=== PATIENT | female | born 1960 | race Caucasian/White ===

== ENCOUNTER 2020-07-31 14:17 | Outpatient (CLI) | payer OTHER, SELFPAY ==
[2020-07-31 16:11] LABS: Vitamin D 25 Hydroxy 78.8 ng/mL
== END 2020-07-31 14:18 | disposition home or self-care (01) ==
PROVIDERS: PCP Obstetrics & Gynecology; Visit Provider Obstetrics & Gynecology
DX: R29.890 Loss of height (principal)
CPT/HCPCS: 36415; 82306

== ENCOUNTER 2020-09-10 12:55 | Outpatient (CLI) | payer OTHER, SELFPAY ==
--- NOTE | ~2020-09-10 | MM_ITS ---
EXAMINATION: MM screening [facility] BI w polina HISTORY: Screening mammogram TECHNIQUE: Craniocaudal and mediolateral oblique 3-D tomosynthesis images were obtained and synthetic 2-D images were generated. CAD analysis was submitted and interpreted. COMPARISON: 09/03/2019, 01/11/2018, 01/07/2017 BREAST PARENCHYMAL COMPOSITION: The breasts are heterogeneously dense, which may obscure small masses . FINDINGS: Stable asymmetry is again noted in the right breast on the mediolateral oblique view. There is no evidence of suspicious mass, calcification, or architectural distortion to suggest malignancy in either breast. There has been no suspicious interval change. IMPRESSION: 1. No mammographic evidence of malignancy. 2. Recommend routine screening mammography in one year. BI-RADS Category 2: Benign finding(s). Reviewed, dictated and finalized at location A. ER PROGRAM DIRECTOR
== END 2020-09-10 12:56 | disposition home or self-care (01) ==
PROVIDERS: PCP Obstetrics & Gynecology; Visit Provider Obstetrics & Gynecology
DX: Z12.31 Encounter for screening mammogram for malignant neoplasm of breast (principal)
CPT/HCPCS: 77063; 77067

== ENCOUNTER 2021-11-12 09:31 | Outpatient (CLI) | payer OTHER, SELFPAY ==
--- NOTE | ~2021-11-12 | MM_ITS ---
EXAMINATION: MM screening [facility] w polina HISTORY: Screening TECHNIQUE: Craniocaudal and mediolateral oblique 3-D tomosynthesis images were obtained and synthetic 2-D images were generated. CAD analysis was submitted and interpreted. COMPARISON: Comparison to multiple prior studies sequentially, with oldest reviewed study dated 08/26. BREAST PARENCHYMAL COMPOSITION: The breasts are heterogeneously dense, which may obscure small masses . FINDINGS: There is no evidence of suspicious mass, calcification, or architectural distortion to sugg est malignancy in either breast. There has been no suspicious interval change. IMPRESSION: 1. No mammographic evidence of malignancy. 2. Recommend routine screening mammography in one year. BI-RADS Category 1: Negative Reviewed, dictated and finalized at location A. EL PILE HAMMER OPERATOR
== END 2021-11-12 09:32 | disposition home or self-care (01) ==
PROVIDERS: Visit Provider Obstetrics & Gynecology
DX: Z12.31 Encounter for screening mammogram for malignant neoplasm of breast (principal)
CPT/HCPCS: 77063; 77067

== ENCOUNTER 2022-11-30 09:51 | Outpatient (CLI) | payer OTHER, SELFPAY ==
--- NOTE | ~2022-11-30 | MM_ITS ---
EXAMINATION: MM screening [facility] BI w polina HISTORY: Screening mammogram TECHNIQUE: Craniocaudal and mediolateral oblique 3-D tomosynthesis images were obtained and synthetic 2-D images were generated. CAD analysis was submitted and interpreted. COMPARISON: 11/12/2021, 09/10/2020, 09/03/2019 BREAST PARENCHYMAL COMPOSITION: The breasts are heterogeneously dense, which may obscure small masses . FINDINGS: No suspicious mass, calcification, or architectural distortion are identified in either [place] ast to suggest malignancy. There has been no suspicious interval change. IMPRESSION: 1. No mammographic evidence of malignancy. 2. Recommend routine screening mammography in one year. BI-RADS Category 1: Negative Reviewed, dictated and finalized at location A. R HAND
--- NOTE | ~2022-11-30 | DEXA_ITS ---
Bone Density Report Name: GABINO MAYA Age: 62 Sex: Female Ethnicity: White Date of : 1960 Indication: postmenopausal; screening for osteoporosis; Referring Provider: YELENA QUIÑONES Study: Bone densitometry was performed. Exam Date: November 30, 2022 Accession number: [id number] Bone Density: Region BMD T-score Z-score Classification AP Spine(L1-L4) 1.020 -0.2 1.4 Normal Femoral Neck (Left) 0.761 -0.8 0.6 Normal Total Hip (Left) 0.881 -0.5 0.6 Normal Femoral Neck (Right) 0.759 -0.8 0.6 Normal Total Hip (Right) 0.899 -0.4 0.8 Normal Total Hip Mean 0.890 -0.5 0.7 Normal World Health Organization criteria for BMD impression classify patients as: Normal (T-score at or above -1.0), Osteopenia (T-score between -1.0 and -2.5), or Osteoporosis (T-score at or below -2.5). 10-year Fracture Risk: FRAX not reported because: All T-scores for Spine Total, Hip Total, Femoral Neck at or above -1.0 Previous Exams: Region Exam Age BMD T-score BMD Change BMD Change Date g/cm2 vs Baseline vs Previous AP Spine (L1-L4) 11/30/2022 62 1.020 -0.2 -0.082 (-7.4%) -0.082 (-7.4%) 12/22/2012 52 1.102 0.5 Total Hip(Left) 11/30/2022 62 0.881 -0.5 -0.107 (-10.9% -0.108 (-10.9% 09/03/2019 59 0.989 0.4 0.001 (0.1%)# 0.060 (6.5%)* 09/09/2016 56 0.928 -0.1 -0.060 (-6.0%) -0.060 (-6.0%) 12/22/2012 52 0.988 0.4 Total Hip(Right) 11/30/2022 62 0.899 -0.4 -0.100 (-10.0% -0.043 (-4.6%) 09/03/2019 59 0.942 0.0 -0.057 (-5.7%) 0.006 (0.6%) 09/09/2016 56 0.937 0.0 -0.062 (-6.2%) -0.062 (-6.2%) 12/22/2012 52 0.999 0.5 *Denotes significance at 95% confidence level, LSC for AP Spine = 0.022 g/cm2, LSC for Total Hip = 0.027 g/cm2 # Denotes dissimilar scan types or analysis methods Clinical Information Provided by Patient: Has used the following medications: Vitamin D, Calcium Patient maximum height was 63.25 Menopause Age: 50 Drinks caffeinated beverages Onset of menses at age 13 Number of children 0 Impression: The patient has normal bone mass. The BMD for the Total Hip(Left) decreased, changing by -10.9% since the last DXA exam. The BMD for the Total Hip(Right) decreased, changing by -4.6% since the last DXA exam. Discussion: BONE DENSITY IS ABOVE THE MINIMUM DESIRABLE LEVEL AT ALL SKELETAL SITES TESTED. This patient?s bone mineral density is above the minimum desirable level (T-score -1.0 or be
== END 2022-11-30 09:52 | disposition home or self-care (01) ==
PROVIDERS: Visit Provider Obstetrics & Gynecology
DX: Z12.31 Encounter for screening mammogram for malignant neoplasm of breast (principal); Z78.0 Asymptomatic menopausal state
CPT/HCPCS: 77063; 77067; 77080

== ENCOUNTER 2024-03-01 16:17 | Outpatient (CLI) | payer OTHER, SELFPAY ==
--- NOTE | ~2024-03-01 | MM_ITS ---
EXAMINATION: MM screening [facility] BI w [place] HISTORY: Screening TECHNIQUE: Craniocaudal and mediolateral oblique 3-D tomosynthesis images were obtained and synthetic 2-D images were generated. CAD analysis was submitted and interpreted. COMPARISON: Comparison to multiple prior studies sequentially, with oldest reviewed study dated 01/07. BREAST PARENCHYMAL COMPOSITION: Not dense: There are scattered areas of fibroglandular density. FINDINGS: There is no evidence of suspicious mass, calcification, or architectural distortion to sugg est malignancy in either breast. There has been no suspicious interval change. IMPRESSION: 1. No mammographic evidence of malignancy. 2. Recommend routine screening mammography in one year. BI-RADS Category 1: Negative Reviewed, dictated and finalized at location B.
== END 2024-03-01 16:18 | disposition home or self-care (01) ==
PROVIDERS: Visit Provider Obstetrics & Gynecology
DX: Z12.31 Encounter for screening mammogram for malignant neoplasm of breast (principal)
CPT/HCPCS: 77063; 77067

== ENCOUNTER 2025-03-11 15:37 | Outpatient (CLI) | payer MEDICARE, SELFPAY ==
--- NOTE | ~2025-03-11 | MM_ITS ---
EXAMINATION: MM screening francisco BI w polina HISTORY: Screening TECHNIQUE: Craniocaudal and mediolateral oblique 3-D tomosynthesis images were obtained and synthetic 2-D images were generated. CAD analysis was submitted and interpreted. COMPARISON: Comparison to multiple prior studies sequentially, with oldest reviewed study dated 01/11. BREAST PARENCHYMAL COMPOSITION: Not dense: There are scattered areas of fibroglandular density. FINDINGS: There is no evidence of suspicious mass, calcification, or architectural distortion to sugg est malignancy in either breast. There has been no suspicious interval change. IMPRESSION: 1. No mammographic evidence of malignancy. 2. Recommend routine screening mammography in one year. BI-RADS Category 1: Negative Reviewed, dictated and finalized at location A.
--- OUTSIDE RECORDS SUMMARY | 2025-03-11 16:44 | XMS_ITS | Encounter Summary ---
Author Organization [facility] Healthcare Address [address] [place] [address] Care Team Providers Care Employee Relations Advisor Name Role Phone Latricia Ramires MD Primary Care Provider Encounter Details Date Type Department Care Team (Late st Contact Info) Description 03/08/2025 Results Follow-Up [facility] [address] [facility] [address] [place] [phone] Aaliyah Joseph, LAYLA [address] Nieves [facility] [address] [place] [address] Lipase, Amylase Social History Tobacco Use Types Packs/Day Years Used Date Smoking Tobacco: Never Smokeless Tobacco: Never Alcohol Use Standard Drinks/Week Comments Yes 0 (1 standard drink = 0.6 oz pur e alcohol) AUDIT-C Answer Date Recorded Q1: How often do you have a drink containing alc ohol? Never 01/25/2023 Average Number of Drinks Not on file 023 Frequency of Binge Drinking Not on file 10/2022 PHQ-2 Answer Date Recorded PHQ-2 Total Score (If total score is 3 or more points, staff should administer the PHQ-9) 0 07/04/2024 PHQ-9 Answer Date Recorded PHQ-9 Total Score 0 07/04/2024 Comments No Sex and Gender Information Value Date Recorded Sex Assigned at Not on file Legal Sex Female 9:08 AM COAL DIGGER Gender Identity Female 08/05/2020 12:20 AM COAL DIGGER Sexual Orientation Straight 08/30/2019 10 :52 AM COAL DIGGER documented as of this encounter Plan of Treatment Scheduled Procedures Name Priority Associated Diagnoses Date/Ti me COLONOSCOPY Diverticulitis documented as of this encounter Visit Diagnoses Not on filedocumented in this encounter Care Teams Employee Relations Advisor Relationship Specialty Start Date End Date Latricia Ramires MD [address] [facility] [address] [place] [address] PCP - General Sleep Medicine 06/22/23 documented as of this encounter
--- OUTSIDE RECORDS SUMMARY | 2025-03-11 16:44 | XMS_ITS | Encounter Summary ---
Author Organization [facility] Healthcare Address [address] [place] [address] Care Team Providers Care Telehealth Director Name Role Phone Latricia Ramires MD Primary Care Provider [phone] Encounter Details Date Type Department Care Team (Late st Contact Info) Description 03/08/2025 Orders Only [facility] [address] [place] [phone] Aaliyah Joseph, LAYLA [address] Nieves [address] [place], [place] [id number] Calculus of gallbladder without cholecystitis without obstruction Social History Tobacco Use Types Packs/Day Years [...] on file Legal Sex Female 9:08 AM COMMUNITY AMBASSADOR Gender Identity Female 08/05/2020 12:20 AM COMMUNITY AMBASSADOR Sexual Orientation Straight 08/30/2019 10 :52 AM COMMUNITY AMBASSADOR documented as of this encounter Plan of Treatment Scheduled Procedures Name Priority Associated Diagnoses Date/Ti me COLONOSCOPY Diverticulitis documented as of this encounter Procedures Procedure Name Priority Date/Time Associated Diagnosis Comments LIPASE Routine 03/08/2025 9:51 AM CDT Calculus of gallbladder without cholecystitis without obstruction AMYLASE Routine 03/08/2025 9:51 AM CDT Calculus of gallbladder without cholecystitis without obstruction documented in this encounter Results * Amylase (03/08/2025 9:51 AM CDT) Amylase 65 30 - 99 Units/L Blood 03/08/2025 9:51 AM CDT 03/08/2025 12:15 PM CDT Aaliyah Joseph LAB BLOOD ORDERABLES Final Resu lt Performing Organization Address [facility] de Phone Number [facility] [place] [address] * Lipase (03/08/2025 9:51 AM CDT) Lipase 45 10 - 99 Units/L Blood 03/08/2025 9:51 AM CDT 03/08/2025 12:15 PM CDT [facility] LAB BLOOD ORDERABLES Final Resu lt Performing Organization Address [facility] de Phone Number [facility] [place] [address] documented in this encounter Visit Diagnoses Diagnosis Calculus of gallbladder without cholecystitis without obstruction documented in this encounter Care Teams Telehealth Director Relationship Specialty Start Date End Date Latricia Ramires MD [address] [facility] [address] [place] [address] PCP - General Sleep Medicine 06/22/23 documented as of this encounter
--- OUTSIDE RECORDS SUMMARY | 2025-03-11 16:44 | XMS_ITS | Encounter Summary ---
Author Organization [facility] Healthcare Address [address] [place] [address] Care Team Providers Care Temporary Staff Accountant Name Role Phone Latricia Ramires MD Primary Care Provider Encounter Details Date Type Department Care Team (Late st Contact Info) Description 02/07/2025 Telephone [facility] [address] [place] [address] Latricia Ramires MD [address] [facility] [address] [place], [place] [id number] Social History Tobacco Use Types Packs/Day Years [...] on file Legal Sex Female 9:08 AM HEEL SEAT FITTER Gender Identity Female 08/05/2020 12:20 AM HEEL SEAT FITTER Sexual Orientation Straight 08/30/2019 10 :52 AM HEEL SEAT FITTER documented as of this encounter Miscellaneous Notes * Telephone Encounter - Ermelinda Daugherty - 02/07/2025 9:10 AM CDT error documented in this encounter Plan of Treatment Scheduled Procedures Name Priority Associated Diagnoses Date/Ti id COLONOSCOPY Diverticulitis documented as of this encounter Visit Diagnoses Not on filedocumented in this encounter Care Teams Temporary Staff Accountant Relationship Specialty Start Date End Date Latricia Ramires MD [address] [address] PCP - General Sleep Medicine 06/22/23 documented as of this encounter
--- OUTSIDE RECORDS SUMMARY | 2025-03-11 16:44 | XMS_ITS | Encounter Summary ---
Author Organization [facility] Healthcare Address [address] [place] [address] Care Team Providers Care Campus Ambassador Name Role Phone Latricia Ramires MD Primary Care Provider Encounter Details Date Type Department Care Team (Late st Contact Info) Description 02/08/2025 Results Follow-Up [facility] [address] [place] [phone] Latricia Ramires MD [address] [facility] [address] [place], [place] [id number] Urinalysis reflex to microscopic and culture Urine, Urinalysis, microscopic only Social History Tobacco Use Types Packs/Day Years [...] on file Legal Sex Female 9:08 AM PUBLICATIONS WRITER Gender Identity Female 08/05/2020 12:20 AM PUBLICATIONS WRITER Sexual Orientation Straight 08/30/2019 10 :52 AM PUBLICATIONS WRITER documented as of this encounter Plan of Treatment Scheduled Procedures Name Priority Associated Diagnoses Date/Ti me COLONOSCOPY Diverticulitis documented as of this encounter Visit Diagnoses Not on filedocumented in this encounter Care Teams Campus Ambassador Relationship Specialty Start Date End Date Latricia Ramires MD [address] [facility] [address] [place] [address] PCP - General Sleep Medicine 06/22/23 documented as of this encounter
--- OUTSIDE RECORDS SUMMARY | 2025-03-11 16:44 | XMS_ITS | Encounter Summary ---
Author Organization [facility] Healthcare Address [address] [place] [address] Care Team Providers Care Business Continuity Manager Name Role Phone Latricia Ramires MD Primary Care Provider Encounter Details Date Type Department Care Team (Late st Contact Info) Description 01/21/2025 Results Follow-Up [facility] [address] [facility] [address] [place] [phone] Aaliyah Joseph, LAYLA [address] Ezequiel [address] [place] [address] XR Knee Left 4 or More Views Social History Tobacco Use Types Packs/Day Years [...] on file Legal Sex Female 9:08 AM SLAB STRIPPER Gender Identity Female 08/05/2020 12:20 AM SLAB STRIPPER Sexual Orientation Straight 08/30/2019 10 :52 AM SLAB STRIPPER documented as of this encounter Plan of Treatment Scheduled Procedures Name Priority Associated Diagnoses Date/Ti me COLONOSCOPY Diverticulitis documented as of this encounter Visit Diagnoses Not on filedocumented in this encounter Care Teams Business Continuity Manager Relationship Specialty Start Date End Date Latricia Ramires MD [address] [facility] [address] [place] [address] PCP - General Sleep Medicine 06/22/23 documented as of this encounter
--- OUTSIDE RECORDS SUMMARY | 2025-03-11 16:45 | XMS_ITS | Clinical Summary ---
Author Organization [facility] Address [address] [place] [address] Phone Care Team Providers Care 3D Animator Name Role Phone Unavailable Primary Care Provider Unavailabl e Allergies No known active allergies Medications metoprolol succinate (TOPROL XL) 25 mg Extended Release 24 hour tablet Take 25 mg by mouth daily. 07/04/2024 Active amitriptyline (ELAVIL) 25 mg tablet Take 25 mg by mouth. Active calcium as CARBONATE-vitami n D3 500 mg-10 mcg (400 unit) tablet Take 1 Tablet by mouth daily. Active multivitamin (DAILY-MIRZA) tablet Active Encounters Date Type Department Care Team Description 03/07/2025 8:32 AM CDT - 03/07/2025 11:11 AM CDT Emergency [facility] Emergency Department [address] [place] [address] Trev Gastelum DO Chest pain, unspecified type (Primary Dx); Gallstones Discharge Disposition: Home or Self Care 03/07/2025 Travel 02/26/2025 External Device Data STL ABSTRACTION Provider, Abstract 02/14/2025 External Device Data STL ABSTRACTION Provider, Abstract 02/14/2025 External Device Data ST[place] ABSTRACTION Provider, Abstract 02/14/2025 External Device Data STL ABSTRACTION Provider, Abstract 02/13/2025 External Device Data STL ABSTRACTION Provider, Abstract 02/13/2025 External Device Data STL ABSTRACTION Provider, Abstract 02/12/2025 External Device Data STL ABSTRACTION Provider, Abstract 01/08/2025 External Device Data STL ABSTRACTION Provider, Abstract 01/08/2025 External Device Data STL ABSTRACTION Provider, Abstract 01/08/2025 External Device Data STL ABSTRACTION Provider, Abstract 12/12/2024 External Device Data STL ABSTRACTION Provider, Abstract from Last 3 Months Social History Tobacco Use Types Packs/Day Years Used Date Smoking Tobacco: Never Tobacco Cessation:Counseling Given: Not Answered Alcohol Use Standard Drinks/Week Comments Not Currently 0 (1 standard drink = 0.6 oz pur e alcohol) Feeling Safe Answer Date Recorded Are you in a relationship wi th someone who hurts you emotionally and/or physically? No 03/07/2025 Comments Unknown Sex and Gender Information Value Date Recorded Sex Assigned at Not on file Legal Sex Female 7:39 PM [employer] Gender Identity Not on file Sexual Orientation Not on file Last Filed Vital Signs Vital Sign Reading Time Taken Comments Blood Pressure 128/76 03/07/2025 10:35 AM CDT Pulse 67 03/07/2025 11:00 AM CDT Temperature 37.6 C (99.6 F) 10/12/2024 7:42 PM [employer] Respiratory Rate 22 03/07/2025 11:00 AM CDT Oxygen Saturation 99% 03/07/2025 11:00 AM CDT Inhaled Oxygen Concentration - - Weight 75.8 kg (167 lb) 03/07/2025 8:43 AM CDT Height 160 cm (5' 3) 03/07/2025 8:43 AM CDT Body Mass Index 29.58 03/07/2025 8:43 AM CDT Plan of Treatment Health Maintenance Due Date Last Done Comments Pre-Diabetes and Diabetes Screening 1960 BREAST CANCER SCREENING 1999 COLORECTAL SCREENING 2004 Colorectal Cancer Screening 2004 FIT-DNA Q 3 years 2004 FIT/FOBT Q 1 year 2004 Flex Sig/CT Colonography Q 5 years 2004 OSTEOPOROSIS SCREENING 2024 COVID-19 Vaccine (2023-2 5 season) 2024 06/27/2024, 06/11/2024, 06/30/2023, Additional history exists DTAP/TDAP/TD VACCINES (2 - T d or Tdap) 09/06/2029 09/06/2019 RSV VACCINE (60+ or ) (1 - 1-dose 75+ series) 2034 ZOSTER VACCINE Completed 04/15/2020, 10/05/2019 INFLUENZA VACCINE Completed 06/27/2024 PNEUMOCOCCAL VACCINE 50+ YEARS Completed 07/04/2024 Procedures Procedure Name Priority Date/Time Associated Diagnosis Comments TROPONIN 2 HR, 5TH GEN Timed Study 03/07/2025 10:17 AM CDT CTA CHEST W AND/OR WO CONTRAST Stat 03/07/2025 9:51 AM CDT EKG 12-LEAD Stat 03/07/2025 8:41 AM CDT TROPONIN BASELINE, 5TH GEN Stat 03/07/2025 8:39 AM CDT BRAIN NATRIURETIC PEPTIDE, BNP OR PROBNP Stat 03/07/2025 8:39 AM CDT COMPREHENSIVE METABOLIC PANEL Stat 03/07/2025 8:39 AM CDT CBC WITH DIFFERENTIAL Stat 03/07/2025 8:39 AM CDT from Last 3 Months Results * TROPONIN 2 HR, 5TH GEN (03/07/2025 10:17 AM CDT) TROPONIN T, 2 HR 5TH GEN 6 <=10 ng/L 03/07/2025 10:53 AM CDT [facility] DELTA 2HR TROPONIN T -3 See Interp. 03/07/2025 10:53 AM CDT [facility] [employer] [facility] Blood Venipuncture / Unknown 03/07/2025 10:17 AM CDT 03/07/2025 10:23 AM CDT Narrative [facility] - 03/07/2025 10:53 AM CDT Troponin Detectable but normal range. Delta not changing. Trev Gastelum DO CHEMISTRY ORDERABLES Final Resu lt [facility] [employer] [facility] CLIA# [id number] [place] [address] * CTA CHEST W AND/OR WO CONTRAST (03/07/2025 9:51 AM CDT) Anatomical Region Laterality Modality Chest Computed Tomogra phy 03/07/2025 9:48 AM CDT Impressions 03/07/2025 10:07 AM CDT IMPRESSION: 1. No evidence of pulmonary embolism. 2. Cholelithiasis. DICTATION LOCATION: Location [address] [place] [address] 03/07/2025 10:07 AM CDT EXAMINATION: CTA CHEST W AND/OR WO CONTRAST DATE: 03/07/2025 9:51 AM HISTORY: cp rule out pe TECHNIQUE: CTA of the chest was performed following the uneventful administration of contrast (IOPAMIDOL 76 % INTRAVENOUS SOLUTION (MULTI-DOSE BULK PACK) Given:70 mL) according to pulmonary embolism protocol. The examination was performed with the adjustment of mA according to the patient size and/or the use of Iterative Reconstruction Technique. Maximum intensity projection postprocessing was performed by the technologist and sent to the workstation for review. COMPARISON: No prior study is available for comparison at the time of this dictation. FINDINGS: Lower neck and axillae: No acute findings. Mediastinum and carmen: The heart size is normal. There is no pericardial effusion. There is patchy atherosclerotic calcification. Coronary artery calcifications are present. There are no filling defects in the pulmonary arteries to suggest pulmonary embolism. There is no bulky adenopathy. Pulmonary: There is no consolidation or pleural effusion. Upper abdomen: There is cholelithiasis. Musculoskeletal: No acute findings. Procedure Note Bashir Muñiz MD - 03/07/2025 EXAMINATION: CTA CHEST W AND/OR WO CONTRAST DATE: 03/07/2025 9:51 AM HISTORY: cp rule out pe TECHNIQUE: CTA of the chest was performed following the uneventful administration of contrast (IOPAMIDOL 76 % INTRAVENOUS SOLUTION (MULTI-DOSE BULK PACK) Given:70 mL) according to pulmonary embolism protocol. The examination was performed with the adjustment of mA according to the patient size and/or the use of Iterative Reconstruction Technique. Maximum intensity projection postprocessing was performed by the technologist and sent to the workstation for review. COMPARISON: No prior study is available for comparison at the time of this dictation. FINDINGS: Lower neck and axillae: No acute findings. Mediastinum and carmen: The heart size is normal. There is no pericardial effusion. There is patchy atherosclerotic calcification. Coronary artery calcifications are present. There are no filling defects in the pulmonary arteries to suggest pulmonary embolism. There is no bulky adenopathy. Pulmonary: There is no consolidation or pleural effusion. Upper abdomen: There is cholelithiasis. Musculoskeletal: No acute findings. IMPRESSION: 1. No evidence of pulmonary embolism. 2. Cholelithiasis. DICTATION LOCATION: Location 7 - [facility] Trev Gastelum DO CT ORDERABLES Final Result * EKG 12-LEAD (03/07/2025 8:41 AM CDT) 03/07/2025 8:41 AM CDT Narrative INTERFACE SYSTEM - 03/07/2025 3:30 [place] [address] Test Date: 2025-03-07 Pat Name: GABINO FLANAGAN Department: 90 Room: [address] [place] [address] Gender: Female Preschool Director: orquidea : 1960 Requested By: TREV Arriaza Order Number: [id number] Reading MD: Nacho Fay Measurements Intervals [place] Rate: 70 P: 18 MO: 140 QRS: -56 QRSD: 78 T: 50 QT: 390 QTc: 421 Interpretive Statements Normal sinus rhythm Left axis deviation Abnormal ECG Compared to ECG 10/12/2024 19:55:24 No significant changes Electronically Signed On 03-07-2025 15:30:01 CDT by Nacoh Fay Procedure Note Nacho Fay MD - 03/07/2025 [place] [address] Test Date: 2025-03-07 [facility] Department: 90 Room: [address] [place] [address] Gender: Female Preschool Director: : 1960 Requested By: TREV Arriaza Order Number: [id number] Reading MD: Nacho Fay Measurements Intervals [place] Rate: 70 P: 18 MO: 140 QRS: -56 QRSD: 78 T: 50 QT: 390 QTc: 421 Interpretive Statements Normal sinus rhythm Left axis deviation Abnormal ECG Compared to ECG 10/12/2024 19:55:24 No significant changes Electronically Signed On 03-07-2025 15:30:01 CDT by Nacho Fay Trev Gastelum DO ECG ORDERABLES Final Result INTERFACE SYSTEM Refer to clinic/hospital department * TROPONIN BASELINE, 5TH GEN (03/07/2025 8:39 AM CDT) Pathologist [facility] TROPONIN T, BASELINE 5TH GEN 9 <=10 ng/L 03/07/2025 9:15 AM CDT [facility] [employer] [facility] Blood Venipuncture / Unknown 03/07/2025 8:39 AM CDT 03/07/2025 8:43 AM CDT Narrative [facility] [employer] [facility] - 03/07/2025 9:15 AM CDT Troponin Detectable but normal range. Trev Gastelum DO CHEMISTRY ORDERABLES Final Resu lt [facility] [employer] [facility] CLIA# [id number] [place] [address] * (ABNORMAL) CBC WITH DIFFERENTIAL (03/07/2025 8:39 AM CDT) Pathologist [facility] WBC 7.3 4.0 - 9.8 K/uL 03/07/2025 8:47 AM CDT [facility] [employer] [facility] RBC 4.07 3.90 - 4.90 M/uL 03/07/2025 8:47 AM CDT [facility] [employer] [facility] HEMOGLOBIN 13.1 11.8 - 14.8 g/dL 03/07/2025 8:47 AM CDT [facility] [employer] [facility] HEMATOCRIT 39.2 35.5 - 44.0 % 03/07/2025 8:47 AM CDT [facility] [employer] [facility] MCV 96.3 82.0 - 99.0 fL 03/07/2025 8:47 AM CDT [facility] [employer] [facility] MCH 32.2 27.2 - 32.6 pg 03/07/2025 8:47 AM CDT [facility] MCHC 33.4 31.5 - 35.5 g/dL 03/07/2025 8:47 AM CDT [facility] RDW 13.2 11.5 - 14.5 % 03/07/2025 8:47 AM CDT [facility] RDW-STDEV 46.9 37.1 - 48.7 fL 03/07/2025 8:47 AM CDT [facility] PLATELETS 211 140 - 350 K/uL 03/07/2025 8:47 AM CDT [facility] MPV 8.9(L) 9.3 - 12.4 fL 03/07/2025 8:47 AM CDT [facility] NEUTROPHILS 55 % 03/07/2025 8:47 AM CDT [facility] LYMPHOCYTES 33 % 03/07/2025 8:47 AM CDT [facility] MONOCYTES 10 % 03/07/2025 8:47 AM CDT [facility] EOSINOPHILS 2 % 03/07/2025 8:47 AM CDT [facility] BASOPHILS 0 % 03/07/2025 8:47 AM CDT [facility] IMMATURE GRANULOCYTES 0 % 03/07/2025 8:47 AM CDT [facility] NEUTROPHIL ABSOLUTE 4.03 1.90 - 7.00 K/uL 03/07/2025 8:47 AM CDT [facility] LYMPHOCYTE ABSOLUTE 2.43 0.70 - 4.50 K/uL 03/07/2025 8:47 AM CDT [facility] MONOCYTE ABSOLUTE 0.72 0.10 - 1.30 K/uL 03/07/2025 8:47 AM CDT [facility] EOSINOPHIL ABSOLUTE 0.11 0.00 - 0.70 K/uL 03/07/2025 8:47 AM CDT [facility] BASOPHILS ABSOLUTE 0.01 0.00 - 0.20 K/uL 03/07/2025 8:47 AM CDT [facility] IMMATURE GRANULOCYTES ABSOLUTE 0.03 0.00 - 0.03 K/uL 03/07/2025 8:47 AM CDT [facility] Blood Venipuncture / Unknown 03/07/2025 8:39 AM CDT 03/07/2025 8:43 AM CDT Trev Gastelum DO HEMATOLOGY ORDERABLES Final Res ult Performing Organization Address City/[facility]/ZIP Co de Phone Number [facility] CLIA# [id number] [place] [address] * BRAIN NATRIURETIC PEPTIDE, BNP OR PROBNP (03/07/2025 8:39 AM CDT) Pathologist [facility] PROBNP, N TERMINAL <36 0 - 900 pg/mL 03/07/2025 9:37 AM CDT [facility] Comment: INTERPRETIVE COMMENT based on diagnosis: Diagnostic NT pro-BNP cutoffs for Heart Failure in the absence of renal failure is suggested for the following ranges <75 years: <125 pg/mL >=75 years: <450 pg/mL Exclusionary rule out cut-point for Acute Decompensated Heart Failure(ADHF) All ages: <300 pg/mL Diagnostic NT pro-BNP cutoffs for Acute Decompensated Heart Failure(ADHF) in the absence of renal failure is suggested for the following ages <50 years: > 450 pg/mL 50-75 years: > 900 pg/mL >75 years: >1800 pg/mL Blood Venipuncture / Unknown 03/07/2025 8:39 AM CDT 03/07/2025 8:43 AM CDT Trev Gastelum DO CHEMISTRY ORDERABLES Final Resu lt Performing Organization Address [facility]/ZIP Co de Phone Number [facility] CLIA# [id number] [place] [address] * (ABNORMAL) COMPREHENSIVE METABOLIC PANEL (03/07/2025 8:39 AM CDT) [facility] SODIUM 139 136 - 145 mmol/L 03/07/2025 9:15 AM [facility] POTASSIUM 4.3 3.4 - 5.1 mmol/L 03/07/2025 9:15 AM [facility] CHLORIDE 106 98 - 107 mmol/L 03/07/2025 9:15 AM [facility] CO2 23 22 - 29 mmol/L 03/07/2025 9:15 AM [facility] CALCIUM 9.0 8.6 - 10.4 mg/dL 03/07/2025 9:15 AM [facility] BUN 19 6 - 20 mg/dL 03/07/2025 9:15 AM [facility] CREATININE 0.92 0.51 - 0.95 mg/dL 03/07/2025 9:15 AM [facility] GLUCOSE 112(H) 74 - 99 mg/dL 03/07/2025 9:15 AM [facility] TOTAL PROTEIN 7.0 6.3 - 8.7 g/dL 03/07/2025 9:15 AM [facility] ALBUMIN 4.1 3.5 - 5.2 g/dL 03/07/2025 9:15 AM [facility] BILIRUBIN TOTAL <0.2 0.0 - 1.1 mg/dL 03/07/2025 9:15 AM [facility] ALKALINE PHOSPHATASE 75 40 - 150 U/L 03/07/2025 9:15 AM [facility] AST 24 0 - 33 U/L 03/07/2025 9:15 AM [facility] ALT 16 0 - 33 U/L 03/07/2025 9:15 AM [facility] GFR >60 >=60 mL/min/1.7 3 sq meter 03/07/2025 9:15 AM [facility] Comment:eGFR calculated with 2020 CKD-EPI equation. Vegetarian diet, extremely high or low muscle mass, and may affect results. Cystatin C with Glomerular Filtration Rate is a suitable alternative for these patients. ANION GAP 10 8 - 16 mmol/L 03/07/2025 9:15 AM CDT [facility] Blood Venipuncture / Unknown 03/07/2025 8:39 AM CDT 03/07/2025 8:43 AM CDT Trev Gastelum DO CHEMISTRY ORDERABLES Final Resu lt [facility] CLIA# [id number] [place] [address] from Last 3 Months Insurance MEDICARE PART A AND B [facility] [id number]
--- OUTSIDE RECORDS SUMMARY | 2025-03-11 16:45 | XMS_ITS ---
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 Further evaluation with at home sleep study. If AMERICA is diagnosed, would plan for treatment with MAD. Primary osteoarthritis of right wrist 07/04/2024 Assessment & Plan (07/04/2024 11:32 AM CDT): Chronic. Referral for physical therapy placed for management of pain and mobility. Bilateral hand pain 11/22/2023 Assessment & Plan (11/22/2023 12:16 PM RESEARCH PSYCHOLOGIST): Acute on chronic. Likely secondary to osteoarthritis and repetitive stress/overuse injury with resulting tendinitis. Trial of Voltaren recommended. Will obtain x- rays for further evaluation. Recommended use of wrist braces and avoidance of aggravating activities. Pain in both feet 06/22/2023 Assessment & Plan (06/22/2023 10:44 AM CDT): Chronic, not well controlled. Referral placed for patient to establish with a new personnel recruiter for further management. Anxiety 06/22/2023 Assessment & Plan (07/04/2024 11:32 AM CDT): Chronic, stable, controlled with counseling. Continue current management. Assessment & Plan (06/22/2023 10:43 AM CDT): Chronic, stable, controlled with counseling. Continue current management. Drug-induced constipation 08/30/2022 Overview (08/30/2022): immodium induced Assessment & Plan (08/30/2022 12:16 PM RESEARCH PSYCHOLOGIST): Constipation Plan: First try lifestyle modification which includes eating regularly, maintaining fiber in diet to the recommended amount of dietary fiber: 20 to 35 grams of fiber per day, drinking at least 8-8oz glasses or 64 oz. of water and other fluids during the day, avoiding dark sodas and coffee/tea, not holding a bowel movement and go to the bathroom when they feel the urge to have a bowel movement. They will increase the fiber slowly to minimize abdominal discomfort. They can try prunes 5-7 BID or 4oz prune juice. If this does not work they can try a bulk forming laxative, osmotic laxative or stimulant laxative/stool softeners, suppositories, enemas. Other headache syndrome 05/02/2022 Assessment & Plan (05/02/2022 10:13 PM CDT): Wakes pt from sleep. Normal neurologic exam. Given she has only had 2 episodes, will observe. If she has another episode, will refer for neuroimaging. Benign paroxysmal positional vertigo 07/03/2021 Chronic bilateral low back pain with left-sided sciatica 06/28/2021 Assessment & Plan (06/28/2021 4:19 PM CDT): No red flags. - Likely PT referral pending XR Subclinical hypothyroidism 04/06/2021 Assessment & Plan (07/04/2024 11:37 AM CDT): Chronic, not requiring levothyroxine. Labs today for follow-up. Assessment & Plan (06/22/2023 10:44 AM CDT): Not requiring levothyroxine. Labs today for follow-up. Assessment & Plan (01/25/2023 9:21 PM CDT): Clinically euthyroid, CTM Assessment & Plan (04/06/2021 10:07 PM CDT): TSH 6.59--> TSH 5.36 with fT4 1.08. Clinically euthyroid - Counseled regarding natural history and risks of overtreatment of subclinical hypothyroidism. - F/u TSH in 6 months. She will contact me sooner if she develops any concerning sx. Dizziness 04/06/2021 Assessment & Plan (04/06/2021 10:08 PM CDT): Pt to undergo vestibular testing with ENT. Valcylcovir, medrol, meclizine should sx return. Moderate mixed hyperlipidemia not requiring stat in therapy 12/29/2020 Assessment & Plan (07/04/2024 11:31 AM CDT): Chronic, stable. Labs today for follow-up. Assessment & Plan (06/22/2023 10:44 AM CDT): Chronic, stable. Labs today for follow-up. Assessment & Plan (02/06/2022 10:36 PM CDT): The 10-year ASCVD risk score (Mossyrockjessica BECERRA Jr., et al., 2013) is: 4.7% Values used to calculate the score: Age: 61 years Sex: Female Is Non- : No Diabetic: No Tobacco smoker: No Systolic Blood Pressure: 140 mmHg Is BP treated: No HDL Cholesterol: 50 mg/dL Total Cholesterol: 180 mg/dL - Counseled regarding lifestyle changes. Assessment & Plan (12/29/2020 9:45 PM CDT): The 10-year ASCVD risk score (Duc BECERRA Jr., et al., 2013) is: 3.7% Values used to calculate the score: Age: 60 years Sex: Female Is Non- : No Diabetic: No Tobacco smoker: No Systolic Blood Pressure: 138 mmHg Is BP treated: No HDL Cholesterol: 61 mg/dL Total Cholesterol: 182 mg/dL - Counseled regarding lifestyle changes. Recurrent vomiting 09/24/2020 Assessment & Plan (06/22/2023 10:44 AM CDT): Chronic. Recurrent vomiting with diarrhea is well controlled with amitriptyline. Continue current therapy. Assessment & Plan (01/25/2023 9:22 PM CDT): EGD and cscope without concerning findings. Likely functional-- much improved with amitriptyline! Cont f/u with Dr. Masterson Assessment & Plan (07/07/2022 10:19 PM CDT): Occasional, long-standing. May be CVS, but needs EGD to eval for gastritis, PUD. - She will call for f/u at [facility] - ok to stop omeprazole, as this is not helpful. Cont zofran prn Assessment & Plan (05/02/2022 10:12 PM CDT): Suspect 2/2 gatroenteritis. If recurrences continue, she will let me know Assessment & Plan (09/24/2020 5:35 PM RESEARCH PSYCHOLOGIST): C/f viral gastroenteritis, COVID-19. - Rec zofran prn for nausea - Hydration, advance diet as tolerated - Discussed red flag sx and she will present to ED if these occur Sudden right hearing loss 02/22/2020 Assessment & Plan (12/29/2020 9:44 PM CDT): Now at baseline. bMRI with no retrocochlear pathology. - Cont f/u with ENT. She understands she needs to call them [facility] if her sx return. Assessment & Plan (02/29/2020 10:27 AM CDT): Hearing nearly returned to baseline on the right. 2nd injection done, will defer 3rd. MRI pending- will call with results. Assessment & Plan (02/22/2020 2:58 PM CDT): Recommend dex injection x 3. MRI pending. Will have her return next week, will check audio first if hearing back to baseline. Osteoarthritis of carpometacarpal (CMC) joint of left thumb 11/06/2019 Assessment & Plan (01/25/2023 9:21 PM CDT): rec diclofenac gel, CMC brace Assessment & Plan (07/07/2022 10:22 PM CDT): rec diclofenac gel, CMC brace Assessment & Plan (12/29/2020 9:45 PM CDT): Most likely etiology of L thumb pain. - Counseled regarding treatments and clinical course of thumb CMC arthritis. - Rec thumb brace, diclofenac gel prn Assessment & Plan (11/06/2019 9:37 PM RESEARCH PSYCHOLOGIST): Most likely etiology of L thumb pain. - Counseled regarding treatments and clinical course of thumb CMC arthritis. - For now, rec that she use an alternative finger to scroll through her phone. Can consider diclofenac gel prn in the future as well as ice prn. If no improvement, could consider steroid injection. History of squamous cell carcinoma in situ (SCCI S) of skin 09/10/2019 Assessment & Plan (06/22/2023 10:44 AM CDT): Continue close follow-up with Dermatology as directed. Assessment & Plan (01/25/2023 9:12 PM CDT): Cont f/u with derm, photoprotection Assessment & Plan (02/06/2022 10:08 PM CDT): Cont f/u with derm, photoprotection Assessment & Plan (12/29/2020 11:02 AM CDT): F/b Dr. Hoff. Recent bx of lesion on face skin negative for malignancy. - ABCDEs, photoprotection reviewed. - Cont yearly derm appt Assessment & Plan (09/10/2019 7:51 PM RESEARCH PSYCHOLOGIST): Of L hand, resected 1995, with additional cheek NMSC. - Cont f/u with Dr. Hoff of dermatology - Counseled regarding photoprotection, ABCDEs Plantar fasciitis, bilateral 09/10/2019 Assessment & Plan (09/10/2019 7:54 PM RESEARCH PSYCHOLOGIST): TTP over plantar fasciae today. - Counseled regarding need for arch support, minimizing time barefoot or in unsupportive shoes. - Rec rolling feet on frozen water bottle as massage, stretching, toe curls. - Refer to PT. Hypertension, essential 09/10/2019 Assessment & Plan (07/04/2024 11:31 AM CDT): Chronic, stable, well controlled. Continue metoprolol. Assessment & Plan (11/22/2023 12:16 PM RESEARCH PSYCHOLOGIST): Chronic, uncontrolled. Proceed with metoprolol. Assessment & Plan (01/25/2023 9:21 PM CDT): 24h ambulatory BP monitor with approx 20% of readings in hypertensive range. No nocturnal dipping, though pt states did not sleep much that night. - Regular swimming has clearly reduced her blood pressure! Congratulated her on her hard work. - Discussed that findings above still could place at elevated CV risk, so discussed lifestyle changes to reduce CV risk in detail today. - asked her to cont home BP monitoring Assessment & Plan (07/07/2022 10:21 PM CDT): 24h ambulatory BP monitor with approx 20% of readings in hypertensive range. No nocturnal dipping, though pt states did not sleep much that night. - Regular swimming has clearly reduced her blood pressure! Congratulated her on her hard work. - Discussed that findings above still could place at elevated CV risk, so discussed lifestyle changes to reduce CV risk in detail today. - asked her to cont home BP monitoring Assessment & Plan (02/06/2022 10:36 PM CDT): 24h ambulatory BP monitor with approx 20% of readings in hypertensive range. No nocturnal dipping, though pt states did not sleep much that night. - Regular swimming has clearly reduced her blood pressure! Congratulated her on her hard work. - Discussed that findings above still could place at elevated CV risk, so discussed lifestyle changes to reduce CV risk in detail today. Assessment & Plan (04/06/2021 10:06 PM CDT): 24h ambulatory BP monitor with approx 20% of readings in hypertensive range. No nocturnal dipping, though pt states did not sleep much that night. - Regular swimming has clearly reduced her blood pressure! Congratulated her on her hard work. - Discussed that findings above still could place at elevated CV risk, so discussed lifestyle changes to reduce CV risk in detail today. Assessment & Plan (12/29/2020 9:43 PM CDT): 24h ambulatory BP monitor with approx 20% of readings in hypertensive range. No nocturnal dipping, though pt states did not sleep much that night. - Discussed that findings above still could place at elevated CV risk, so discussed lifestyle changes to reduce CV risk in detail today. Assessment & Plan (11/06/2019 9:38 PM RESEARCH PSYCHOLOGIST): Likely white coat HTN given normal BP at her gym. - CTM Bps outpatient and bring to next appointment. - Counseled regarding lifestyle changes to prevent HTN. Assessment & Plan (09/10/2019 8:07 PM RESEARCH PSYCHOLOGIST): Likely 2/2 decongestant use. No hx of HTN. - Recommended she avoid decongestants. - Recommended she check BP outside the office and let me know if >130/80. - Lower BP with low salt diet, exercise, fruits and vegetables. - F/u at next visit. Encounter for Medicare annual wellness exam 08/26 Assessment & Plan (07/04/2024 11:31 AM CDT): Patient here for annual Medicare wellness visit and for review of complete medical problem list. I reviewed Medicare Wellness Questionnaire. I reviewed and updated the complete problem list, medication list, family history, and immunization records with the patient. I provided preventive counseling and early detection interventions to the patient through health maintenance update and summary of today's office visit. Assessment & Plan (01/25/2023 11:49 AM CDT): - - Depression screen: PHQ Screening PHQ-2 Total Score (If total score is 3 or more points, staff should administer the PHQ-9): 0 PHQ-9 Total Score: 0 - A1c: check today - Lipids: check today - DEXA: WNL 11/2022 - Colon cancer: 2018, normal, f/u 2028. - Mammogram: 11/2022 birads 1 - Pap: 2018 normal, f/b Dr. Cherelle mccollum in [place]. - Hepatitis C: NR - HIV: previously screened and negative - Influenza: recommended - Td/Tdap: UTD 2019 - Shingrix UTD - Pneumovax discuss at 65 - Prevnar: discuss at 65 - COVID: UTD bivalent Routine health maintenance objectives discussed and orders placed for any outstanding screening studies as noted. Physical exam performed as above.Routine annual labs, if needed, have been ordered and will be reviewed with patient when results available. Assessment & Plan (12/31/2021 2:13 PM CDT): - - Depression screen: PHQ Screening PHQ-2 Total Score (If total score is 3 or more points, staff should administer the PHQ-9): 1 PHQ-9 Total Score: 2 - A1c: check today - Lipids: check today - DEXA: WNL 2018, f/u 2023 - Colon cancer: 2018, normal, f/u 2028 - Mammogram: 10/2021 normal per pt. - Pap: 2019 normal, f/b Dr. Cherelle mccollum in [place]. - Hepatitis C: NR - HIV: previously screened and negative - Influenza: recommended - Td/Tdap: UTD 2019 - Shingrix UTD - Pneumovax discuss at 65 - Prevnar: discuss at 65 - COVID: Rec Routine health maintenance objectives discussed and orders placed for any outstanding screening studies as noted. Physical exam performed as above.Routine annual labs, if needed, have been ordered and will be reviewed with patient when results available. Assessment & Plan (12/29/2020 11:06 AM CDT): - - Depression screen: PHQ Screening PHQ-2 Total Score (If total score is 3 or more points, staff should administer the PHQ-9): 1 PHQ-9 Total Score: 1 - A1c: check today - Lipids: check today - DEXA: WNL 2018, f/u 2023 - Colon cancer: 2019, normal, f/u 2028 - Mammogram: 08/2020 normal per pt. - Pap: 2018 normal, f/b Dr. Cherelle mccollum in [place]. - Hepatitis C: screen today - HIV: previously screened and negative - Influenza: recommended - Td/Tdap: UTD 2019 - Shingrix UTD - Pneumovax discuss at 65 - Prevnar: discuss at 64 Routine health maintenance objectives discussed and orders placed for any outstanding screening studies as noted. Physical exam performed as above.Routine annual labs, if needed, have been ordered and will be reviewed with patient when results available. Assessment & Plan (09/06/2019 1:54 PM RESEARCH PSYCHOLOGIST): - - Depression screen: PHQ Screening PHQ-2 Total Score (If total score is 3 or more points, staff should administer the PHQ-9): 0 - A1c: request labs - Lipids: request labs - DEXA: WNL 2018, f/u 2023 - Colon cancer: 2019, normal, f/u 2028 - Mammogram 08/2019 WNL - Pap: 2019 normal - Hepatitis C: unknown, request labs - HIV: previously screened and negative - Influenza: UTD 19-20 - Td/Tdap: give today - Shingrix recommended - Pneumovax discuss at 65 - Prevnar: discuss at 64 Routine health maintenance objectives discussed and orders placed for any outstanding screening studies as noted. Physical exam performed as above.Routine annual labs, if needed, have been ordered and will be reviewed with patient when results available. Sensorineural hearing loss (SNHL) of both ears 0 12/14/2016 Ear ringing 11/09/2016 Tympanic membrane conductive hearing loss 2012 Current Treatment and Therapy Plans No current plan information found. Past Treatment and Therapy Plans No past plan information found. Lifetime Dose Tracking * Chemical Lifetime Dose Automatic Entry Manual Entr y DLP 1,354 mGycm 1,354 mGycm 0 mGycm Resolved Problems Problem Noted Date Diagnosed Date Resolved Date Blood pressure elevated with out history of HTN 06/22/2023 07/04/2024 Assessment & Plan (06/22/2023 10:43 AM CDT): Blood pressure is normal in office today and review of home readings look good overall. Continue to monitor. Continue behavioral management with regular exercise and healthy diet. COVID-19 05/12/2022 07/07/2022 Assessment & Plan (05/12/2022 10:35 PM CDT): Pt is high risk for severe COVID-19 due to age, BMI. - After discussion of EUA status, side effects of Paxlovid, pt elects to pursue supportive care. - Discussed supportive care with hydration, rest, good nutrition, and APAP prn for pain and fever. Cont zofran prn for nausea - Red flag symptoms reviewed in detail and they will go to ED should these occur. - Reviewed isolation guidelines. Diverticulitis 05/05/2021 07/04/2024 Jaw pain 05/05/2021 06/22/2023 Assessment & Plan (05/05/2021 9:58 PM CDT): Suspect TMJ. Low c/f GCA. - Asked pt to f/u with dentist if her sx persist. Left lower quadrant pain 04/23/2021 Assessment & Plan (06/28/2021 4:18 PM CDT): CT A/P with diverticulitis, but no improvement with abx. Cscope 11/2018 with 1 small tubular adenoma. Seen by GI with no rec for f/u cscope. At this point, given her concurrent back pain suspect MSK/ abd wall pain. - Will get pelvic US to r/o pelvic pathology Assessment & Plan (05/05/2021 9:57 PM CDT): No improvement in sx on 10 d of abx. I am concerned she may be developing complicated diverticulitis/ intra-abdominal abscess. - Red flag sx reviewed she will go to ED if these occur. Assessment & Plan (04/23/2021 10:55 PM CDT): Suspect 2/2 diverticulitis, less likely colitis, L adnexal pathology, L pyelonephritis. - Rec APAP 1000mg tid prn, warm compresses - Will coordinate urgent CT A/P for tmo - Red flag sx discussed in detail and she will go to ED should these occur. Imbalance 08/08/2020 12/29/2020 Other chest pain 03/27/2020 12/29/2020 Assessment & Plan (03/27/2020 2:39 PM CDT): Evaluated in ED with normal EKG, troponin, and CXR. Chest pain had resolved by the time she presented. With CV risk factors of moderately elevated cholesterol, prediabetes noted on POC labs today. She does not carry a diagnosis of HTN, as her home blood pressures have been normal, but does have white coat HTN. Suspect the episode was esophageal spasm, but given risk factors this warrants a stress test. - Refer for treadmill stress test today - Red flag sx discussed White coat syndrome without hypertension 03/27/2020 12/29/2020 Assessment & Plan (03/27/2020 2:40 PM CDT): Would like to get a better sense of blood pressure-- as pressures at her gym tend to be much lower than those in the office. With recent chest pain episode, even more critical to determine if she truly has HTN. - Referred for amb BP monitor - Discussed lifestyle measures to reduce BP Cervical radiculopathy 11/06/201912/29 Assessment & Plan (11/06/2019 9:35 PM RESEARCH PSYCHOLOGIST): Most likely etiology of burning sensation. No red flags, neurologic exam normal. - XR C spine today given long duration of sx. - Reassured pt regarding typical benign clinical course. She will notify me of any new sensory or motor sx. - Take ibuprofen 400mg tid prn for pain - Will defer PT for now given she is going for knee bursitis Squamous cell carcinoma in s itu of skin of left hand 09/10/2019 09/10/2019 Pes anserinus bursitis of both knees 09/10/2019 06/22/2023 Assessment & Plan (09/10/2019 7:53 PM RESEARCH PSYCHOLOGIST): TTP over this area, no e/o knee joint pathology. - Rec ice bid-tid, either naproxen 440mg bid prn or ibuprofen 400mg tid prn. - Refer to PT today Acute nasopharyngitis 09/10/20192020 Assessment & Plan (09/10/2019 8:01 PM RESEARCH PSYCHOLOGIST): No e/o acute bacterial sinusitis, PNA. - Avoid phenylephrine and pseudoephedrine given elev BP - Flonase 2 sprays in each nostril once a day, continue mucinex and nasal rinses - Red flag sx reviewed, she will call if these occur. Primary insomnia 09/10/2019 07/04/2024 Assessment & Plan (09/10/2019 8:04 PM RESEARCH PSYCHOLOGIST): No sx of AMERICA, anxiety well controlled. - Previously taking xanax prn for insomnia. Discussed risks, and pt does not want to continue. She takes only occasionally so will d/c today. - Recommended sleep hygiene, regular exercise. Can trial melatonin 4-8mg qhs prn. Sensorineural hearing loss (SNHL) 11/09/2016 12/29/2020 Assessment & Plan (09/10/2019 7:49 PM RESEARCH PSYCHOLOGIST): L sided. MRI unremarkable. She does not feel it is severe enough from hearing aids yet. - Monitor, f/u with ENT prn
--- OUTSIDE RECORDS SUMMARY | 2025-03-11 16:45 | XMS_ITS | Referral Summary ---
Author Organization [facility] Address [address] [place] [address] Care Team Providers Care Fundraiser Name Role Phone Latricia Ramires MD Primary Care Provider [phone] Encounters Date Type Department Care Team Description 03/08/2025 Results Follow-Up [address] [place] [phone] Aaliyah Joseph NP Lipase, Amylase 03/08/2025 11:24 AM CDT - 03/08/2025 11:59 PM CDT Hospital Encounter [address] [address] Discharge Disposition: Discharge to home or self care 03/08/2025 Orders Only [facility] at the [address] [phone] Aaliyah Joseph NP Calculus of gallbladder without cholecystitis without obstruction 03/08/2025 9:30 AM CDT Office Visit [address] [phone] Aaliyah Joseph NP Chest pain, unspecified type (Primary Dx); Calculus of gallbladder without cholecystitis without obstruction 02/20/2025 3:00 PM CDT Office Visit [facility] Orthopaedic Surgery [address] [place] [address] 2nd [address] [place] [address] Isabela Caballero PA Primary osteoarthritis of left knee (Primary Dx); Acute pain of left knee 02/08/2025 Results Follow-Up [address] [place] [phone] Latricia Ramires MD Urinalysis reflex to microscopic and culture Urine, Urinalysis, microscopic only 02/07/2025 5:50 PM CDT Lab [facility] [address] [place] [phone] Dysuria 02/07/2025 Nurse Triage [address] [place] [address] [place] [phone] Latricia Ramires MD Dysuria (Primary Dx) 02/07/[address] [place] [address] [place] [phone] Latricia Ramires MD 01/21/2025 Results Follow-Up [address] [place] [phone] Aaliyah Joseph NP XR Knee Left 4 or More Views 01/21/2025 11:15 AM CDT Office Visit [facility] Dermatology [address] [facility] [address] [place] [phone] Rina Hoff MD Actinic keratoses (Primary Dx); History of nonmelanoma skin cancer; Seborrheic keratoses; Multiple benign nevi; Achrochordon 01/15/2025 11:00 AM CDT Office Visit [facility] Orthopaedic Surgery [address] [place] [address] [address]th [place] [address] [place] [address] Armando Mixon MD Right wrist pain 01/08/2025 2:08 PM CDT - 01/08/2025 11:59 PM CDT Hospital Encounter [facility] Radiology at the [address] [place] [address] Acute pain of left knee Discharge Disposition: Discharge to home or self care 01/08/2025 1:30 PM CDT Office Visit [address] [place] [phone] Aaliyah Joseph NP Acute pain of left knee (Primary Dx); Right wrist pain 12/17/2024 2:00 PM CDT Procedure visit [facility] Otolaryngology [address] [facility] 11th [place] [address] [place] [phone] Shagufta Louis Au.D. Sensorineural hearing loss (SNHL) of both ears (Primary Dx); Tinnitus of both ears from Last 3 Months Allergies No known active allergies Medications multivitamin tablet Active calcium carbonate-vitam in D3 500 mg(1,250mg) -400 unit chewable tablet Take 1 tablet by mouth daily Active amitriptyline (ELAVIL) 25 mg tablet Take 1.5 tablets (37.5 mg total) by mouth nightly Active metoprolol XL (TOPROL-XL) 25 mg extended release tabletIndicatio ns:Hypertension , essential Take 1 tablet (25 mg total) by mouth daily 90 tablet 3 4 Active famotidine (PEPCID) 20 mg tablet Take 1 tablet (20 mg total) by mouth 2 (two) times a day 60 tablet 3 5 10/16/19 26 Active diclofenac sodium (VOLTAREN) 1 % gelIndications: Osteoarthritis Apply 2 g topically 3 (three) times a day 100 g 1 5 Active Colace 100 mg capsule Take 1 capsule (100 mg total) by mouth 2 (two) times a day as needed 5 Active meloxicam (MOBIC) 15 mg tablet Take 1 tablet (15 mg total) by mouth daily 5 02/21/20 25 Discontinu ed(Therapy completed) Active Problems Problem Noted Date Diagnosed Date [...] 11/22/2023 Assessment & Plan (11/22/2023 12:16 PM EXTERN): Acute on chronic. Likely secondary to osteoarthritis and repetitive stress/overuse injury with resulting tendinitis. Trial of Voltaren recommended. Will obtain x- rays for further evaluation. Recommended use of wrist braces and avoidance of aggravating activities. Pain in both feet 06/22/2023 Assessment & Plan (06/22/2023 10:44 AM CDT): Chronic, not well controlled. Referral placed for patient to establish with a new clinical appeals rn for further management. Anxiety 06/22/2023 Assessment & Plan (07/04/2024 11:32 AM CDT): Chronic, stable, controlled with counseling. Continue current management. Assessment & Plan (06/22/2023 10:43 AM CDT): Chronic, stable, controlled with counseling. Continue current management. Drug-induced constipation 08/30/2022 Overview (08/30/2022): immodium induced Assessment & Plan (08/30/2022 12:16 PM EXTERN): Constipation Plan: First try lifestyle modification which [...] PM CDT): The 10-year ASCVD risk score (Ducjessica BECERRA Jr., et al., 2013) is: 4.7% [...] know Assessment & Plan (09/24/2020 5:35 PM EXTERN): C/f viral gastroenteritis, COVID-19. - Rec zofran [...] prn Assessment & Plan (11/06/2019 9:37 PM EXTERN): Most likely etiology of L thumb pain. [...] appt Assessment & Plan (09/10/2019 7:51 PM EXTERN): Of L hand, resected 1996, with additional cheek NMSC. - Cont f/u with Dr. Hoff of dermatology - Counseled regarding photoprotection, ABCDEs Plantar fasciitis, bilateral 09/10/2019 Assessment & Plan (09/10/2019 7:54 PM EXTERN): TTP over plantar fasciae today. - Counseled regarding need for arch support, minimizing time barefoot or in unsupportive shoes. - Rec rolling feet on frozen water bottle as massage, stretching, toe curls. - Refer to PT. Hypertension, essential 09/10/2019 Assessment & Plan (07/04/2024 11:31 AM CDT): Chronic, stable, well controlled. Continue metoprolol. Assessment & Plan (11/22/2023 12:16 PM EXTERN): Chronic, uncontrolled. Proceed with metoprolol. Assessment & [...] today. Assessment & Plan (11/06/2019 9:38 PM EXTERN): Likely white coat HTN given normal BP at her gym. - CTM Bps outpatient and bring to next appointment. - Counseled regarding lifestyle changes to prevent HTN. Assessment & Plan (09/10/2019 8:07 PM EXTERN): Likely 2/2 decongestant use. No hx of [...] - Mammogram: 11/2022 birads 1 - Pap: 2019 normal, f/b Dr. Cherelle mccollum in [place]. - Hepatitis C: NR - HIV: previously [...] cancer: 2019, normal, f/u 2028 - Mammogram: 10/2021 normal per pt. - Pap: 2019 normal, f/b Dr. Cherelle mccollum in [place]. - Hepatitis C: NR - HIV: previously [...] cancer: 2018, normal, f/u 2028 - Mammogram: 08/2020 normal per pt. - Pap: 2018 normal, f/b Dr. Cherelle mccollum in [place]. - Hepatitis C: screen today - HIV: [...] available. Assessment & Plan (09/06/2019 1:54 PM EXTERN): - - Depression screen: PHQ Screening PHQ-2 [...] 11/09/2016 Tympanic membrane conductive hearing loss 2012 Resolved Problems Problem Noted Date Diagnosed Date [...] 11/06/201912/29 Assessment & Plan (11/06/2019 9:35 PM EXTERN): Most likely etiology of burning sensation. No [...] 06/22/2023 Assessment & Plan (09/10/2019 7:53 PM EXTERN): TTP over this area, no e/o knee joint pathology. - Rec ice bid-tid, either naproxen 440mg bid prn or ibuprofen 400mg tid prn. - Refer to PT today Acute nasopharyngitis 09/10/20192020 Assessment & Plan (09/10/2019 8:01 PM EXTERN): No e/o acute bacterial sinusitis, PNA. - Avoid phenylephrine and pseudoephedrine given elev BP - Flonase 2 sprays in each nostril once a day, continue mucinex and nasal rinses - Red flag sx reviewed, she will call if these occur. Primary insomnia 09/10/2019 07/04/2024 Assessment & Plan (09/10/2019 8:04 PM EXTERN): No sx of AMERICA, anxiety well controlled. - Previously taking xanax prn for insomnia. Discussed risks, and pt does not want to continue. She takes only occasionally so will d/c today. - Recommended sleep hygiene, regular exercise. Can trial melatonin 4-8mg qhs prn. Sensorineural hearing loss (SNHL) 11/09/2016 12/29/2020 Assessment & Plan (09/10/2019 7:49 PM EXTERN): L sided. MRI unremarkable. She does not feel it is severe enough from hearing aids yet. - Monitor, f/u with ENT prn Immunizations Immunization Administration Dates Next Due Influenza, Quadrivalent, Hig h Dose, Preservative Free, Intrr 06/27/2024 Influenza, Unspecified 07/05/2022 Moderna SARS-CoV-2 Monovalent Vaccination (12+ Y RS) 12/26/2020,11/28/2020 Pfizer SARS-CoV-2 Monovalent Vaccination (12+ Yrs) PURPLE 12/29/2021 Pfizer Sars-Cov-2 Bivalent Vaccination (12+ YRS) 06/27/2024 Pneumococcal Conjugate Pcv20 07/04/2024 Tdap 09/06/2019 ZOSTER Recombinant 04/15/2020,10/05/2019 Social History Tobacco Use Types Packs/Day Years Used Date Smoking Tobacco: Never Smokeless Tobacco: Never Tobacco Cessation:Counseling Given: Not Answered Alcohol Use Standard Drinks/Week Comments Yes 0 [...] on file Legal Sex Female 9:08 AM EXTERN Gender Identity Female 08/05/2020 12:20 AM EXTERN Sexual Orientation Straight 08/30/2019 10 :52 AM EXTERN Last Filed Vital Signs Vital Sign Reading Time Taken Comments Blood Pressure 120/80 03/08/2025 9:19 AM CDT Pulse 89 03/08/2025 9:19 AM CDT Temperature 36.1 C (97 F) 03/08/2025 9:19 AM CDT Respiratory Rate 18 03/08/2025 9:19 AM CDT Oxygen Saturation 98% 03/08/2025 9:19 AM CDT Inhaled Oxygen Concentration - - Weight 77.1 kg (170 lb) 03/08/2025 9:19 AM CDT Height 154.9 cm (5' 1) 03/08/2025 9:19 AM CDT Body Mass Index 32.12 03/08/2025 9:19 AM CDT Plan of Treatment Scheduled Procedures Name Priority Associated Diagnoses Date/Ti me COLONOSCOPY Diverticulitis Procedures Procedure Name Priority Date/Time Associated Diagnosis Comments AMYLASE Routine 03/08/2025 9:51 AM CDT Calculus of gallbladder without cholecystitis without obstruction LIPASE Routine 03/08/2025 9:51 AM CDT Calculus of gallbladder without cholecystitis without obstruction URINALYSIS, MICROSCOPIC ONLY Routine 02/07/2025 3:18 PM CDT Dysuria URINALYSIS AND REFLEX TO MICROSCOPIC AND CULTURE Routine 02/07/2025 3:18 PM CDT Dysuria PA ARTHROCENTESIS ASPIR&/INJ SMALL JT/BURSA W/O US Routine 01/15/2025 11:00 AM CDT Right wrist pain XR KNEE LEFT 4 OR MORE VIEWS Schedule Routine, Read Routine (OP Routine) 01/08/2025 2:25 PM CDT Acute pain of left knee AUDBASE RESULTS 12/17/2024 1:41 PM CDT HEPATITIS C ANTIBODY Routine 12/29/2020 11:16 AM CDT Routine general medical examination at a health care facility from Last 3 Months or Most Recently Relevant to Health Maintenance Results * Lipase (03/08/2025 9:51 AM CDT) Lipase 45 10 - 99 Units/L Blood 03/08/2025 9:51 AM CDT 03/08/2025 12:15 PM CDT Aaliyah Joseph NP LAB BLOOD ORDERABLES Final Resu lt [facility] [place] [address] * Amylase (03/08/2025 9:51 AM CDT) Amylase 65 30 - 99 Units/L Blood 03/08/2025 9:51 AM CDT 03/08/2025 12:15 PM CDT Aaliyah Joseph NP LAB BLOOD ORDERABLES Final Resu lt Performing Organization Address [facility] Co de Phone Number [facility] [place] [address] * (ABNORMAL) Urinalysis reflex to microscopic and culture Urine (02/07/2025 3:18 PM CDT) Color, ur Straw Yellow Clarity, ur Clear Clear [facility] Specific gravity, ur 1.010 1.003 - 1.030 [facility] pH, urine 6.5 [facility] Comment: Interpretive Data U rine pH is affected by diet, medications, systemic acid-base disturbances, and renal tubular function. pH may affect urinary stone formation. For example, urine pH below 6.0 may help reduce the tendency for calcium phosphate stones and pH greater than 6.0 may reduce the tendency for uric acid stone formation. Source: [facility]ARMA Current Interpretive Data was last revised on 2017 Protein, ur ql Negative Negative [facility] Glucose, ur ql Negative Negative [facility] Ketones, ur Negative Negative [facility] Bilirubin, ur Negative Negative [facility] Blood, ur Negative Negative [facility] Urobilinogen, ur <2.0 <2.0 mg/dL [facility] Nitrite, ur Negative Negative [facility] Leukocyte esterase, ur Trace(A) Negative [facility] UA reflex comment Reflex to microscopic UA will be performed. [facility] Urine 02/07/2025 3:18 PM CDT 02/07/2025 4:01 PM CDT Latricia Ramires MD LAB MICROBIOLOGY - GENERAL OR DERABLES Final Result Performing Organization Address [facility] Co de Phone Number [facility] [place] [address] * (ABNORMAL) Urinalysis, microscopic only (02/07/2025 3:18 PM CDT) WBC, ur 6-10(A) 0 - 5 /HPF RBC, ur 0-2 0 - 2 /HPF [facility] Epithelial cells, squamous, ur 1-5 0 - 5 /HPF [facility] Culture Reflex Comment Reflex conditions for urine culture (WBC >10) not met. [facility] Urine 02/07/2025 3:18 PM CDT 02/07/2025 4:01 PM CDT Latricia Ramires MD LAB URINE ORDERABLES Final Re sult Performing Organization Address [facility] Co de Phone Number [facility] [place] [address] * PA ARTHROCENTESIS ASPIR&/INJ SMALL JT/BURSA W/O US (01/15/2025 11:00 AM CDT) Narrative Armando Mixon MD - 01/15/2025 11:00 AM CDT Armadno Mixon MD 01/15/2025 1:03 PM Small Joint Injection: R thumb [facility] Performed by: Armando Mixon MD Authorized by: Armando Mixon MD Small Joint Injection/Aspiration: Consent Given by: Patient Timeout: prior to procedure the correct patient, procedure, and site was verified Verbal consent obtained?: Yes Supporting Documentation: Indications: Pain Procedure Details: Location: Thumb Site: R thumb CMC Approach: Dorsal Medications: 1 mL lidocaine 10 mg/mL (1 %); 40 mg methylPREDNISolone acetate 40 mg/mL Patient tolerance: Patient tolerated the procedure well with no immediate complications us Armando Mixon MD IN CLINIC/BEDSIDE ORDERABLES Final Result * XR Knee Left 4 or More Views (01/08/2025 2:25 PM CDT) Anatomical Region Laterality Modality Lower Extremities, Knee Left Computed Radiography 01/08/2025 3:07 PM CDT Impressions 01/08/2025 3:07 PM CDT Trace left knee effusion. Otherwise normal left knee radiographs. Electronically signed by: Bashir Wise D.O. Narrative 01/08/2025 3:07 PM CDT EXAMINATION: XR KNEE LEFT 4 OR MORE VIEWS HISTORY: left knee pain since July after squatting COMPARISON: None FINDINGS: Normal joint spaces and alignment. No significant degenerative changes. Trace knee effusion. No displaced fracture. Procedure Note Bashir Wise, - 01/08/2025 EXAMINATION: XR KNEE LEFT 4 OR MORE VIEWS HISTORY: left knee pain since July after squatting COMPARISON: None FINDINGS: Normal joint spaces and alignment. No significant degenerative changes. Trace knee effusion. No displaced fracture. IMPRESSION: Trace left knee effusion. Otherwise normal left knee radiographs. Electronically signed by: Bashir Wise D.O. Aaliyah Joseph NP IMG XR PROCEDURES Final Result * [facility] Results (12/17/2024 1:41 PM CDT) Provider Scanning AUDIOLOGY SERVICES ORDERABLES Final Result * Hepatitis C antibody (12/29/2020 11:16 AM CDT) [facility] Hep C Ab <0.1 0.0 - 0.9 s/co ratio [facility] - 01 Comment: Negative: < 0.8 Indeterminate: 0.8 - 0.9 Positive: > 0.9 The CDC recommends that a positive HCV antibody result be followed up with a HCV Nucleic Acid Amplification test (535803). Blood specimen (specimen) 12/29/2020 11:16 AM CDT 12/29/2020 Narrative [facility] - 12/31/2020 7:09 AM CDT Performed at: [address] [place] [address], [place] [id number] Lumber Sales Supervisor: Sherwin Trevino PhD, Phone: [phone] Michelle Diaz MD LAB MICROBIOLOGY - GEN ERAL ORDERABLES Final Result Performing Organization Address City/State/[facility] Co de Phone Number [facility] - 01 from Last 3 Months or Most Recently Relevant to Health Maintenance [facility] [id number] [facility] [id number] [facility] MEDICARE AARP Care Teams Fundraiser Relationship Specialty Start Date End Date Latricia Ramires MD [address] [facility] [address] [address] PCP - General Sleep Medicine 06/22/23
--- OUTSIDE RECORDS SUMMARY | 2025-03-11 16:45 | XMS_ITS | Clinical Summary ---
Author Organization [facility] Address [address] [place] [address] Care Team Providers Care Batch Dumper Name Role Phone Latricia Ramires MD Primary Care Provider [phone] Allergies No known active allergies Medications multivitamin [...] 11/22/2023 Assessment & Plan (11/22/2023 12:16 PM INSURANCE RISK MANAGER): Acute on chronic. Likely secondary to osteoarthritis and repetitive stress/overuse injury with resulting tendinitis. Trial of Voltaren recommended. Will obtain x- rays for further evaluation. Recommended use of wrist braces and avoidance of aggravating activities. Pain in both feet 06/22/2023 Assessment & Plan (06/22/2023 10:44 AM CDT): Chronic, not well controlled. Referral placed for patient to establish with a new birdcage assembler for further management. Anxiety 06/22/2023 Assessment & Plan (07/04/2024 11:32 AM CDT): Chronic, stable, controlled with counseling. Continue current management. Assessment & Plan (06/22/2023 10:43 AM CDT): Chronic, stable, controlled with counseling. Continue current management. Drug-induced constipation 08/30/2022 Overview (08/30/2022): immodium induced Assessment & Plan (08/30/2022 12:16 PM INSURANCE RISK MANAGER): Constipation Plan: First try lifestyle modification which [...] CDT): The 10-year ASCVD risk score (Duc HERNAN Pelaez., et al., 2013) is: 4.7% Values used to calculate the score: Age: 61 years Sex: Female Is Non- : No Diabetic: No Tobacco smoker: No Systolic Blood Pressure: 140 mmHg Is BP treated: No HDL Cholesterol: 50 mg/dL Total Cholesterol: 180 mg/dL - Counseled regarding lifestyle changes. Assessment & Plan (12/29/2020 9:45 PM CDT): The 10-year ASCVD risk score (Duc HERNAN Pelaez., et al., 2013) is: 3.7% Values used [...] know Assessment & Plan (09/24/2020 5:35 PM INSURANCE RISK MANAGER): C/f viral gastroenteritis, COVID-19. - Rec zofran [...] prn Assessment & Plan (11/06/2019 9:37 PM INSURANCE RISK MANAGER): Most likely etiology of L thumb pain. [...] appt Assessment & Plan (09/10/2019 7:51 PM INSURANCE RISK MANAGER): Of L hand, resected 1995, with additional cheek NMSC. - Cont f/u with Dr. Hoff of dermatology - Counseled regarding photoprotection, ABCDEs Plantar fasciitis, bilateral 09/10/2019 Assessment & Plan (09/10/2019 7:54 PM INSURANCE RISK MANAGER): TTP over plantar fasciae today. - Counseled regarding need for arch support, minimizing time barefoot or in unsupportive shoes. - Rec rolling feet on frozen water bottle as massage, stretching, toe curls. - Refer to PT. Hypertension, essential 09/10/2019 Assessment & Plan (07/04/2024 11:31 AM CDT): Chronic, stable, well controlled. Continue metoprolol. Assessment & Plan (11/22/2023 12:16 PM INSURANCE RISK MANAGER): Chronic, uncontrolled. Proceed with metoprolol. Assessment & [...] today. Assessment & Plan (11/06/2019 9:38 PM INSURANCE RISK MANAGER): Likely white coat HTN given normal BP at her gym. - CTM Bps outpatient and bring to next appointment. - Counseled regarding lifestyle changes to prevent HTN. Assessment & Plan (09/10/2019 8:07 PM INSURANCE RISK MANAGER): Likely 2/2 decongestant use. No hx of [...] 2019 normal, f/b Dr. Cherelle mccollum in [place]. - Hepatitis C: NR - HIV: previously [...] Mammogram: 10/2021 normal per pt. - Pap: 2018 normal, f/b Dr. Cherelle mccollum in [place]. - Hepatitis C: NR - HIV: previously [...] 2018 normal, f/b Dr. Cherelle mccollum in [place]. - Hepatitis C: screen today - HIV: [...] available. Assessment & Plan (09/06/2019 1:54 PM INSURANCE RISK MANAGER): - - Depression screen: PHQ Screening PHQ-2 [...] previously screened and negative - Influenza: UTD - Td/Tdap: give today - Shingrix recommended [...] 11/06/201912/29 Assessment & Plan (11/06/2019 9:35 PM INSURANCE RISK MANAGER): Most likely etiology of burning sensation. No [...] 06/22/2023 Assessment & Plan (09/10/2019 7:53 PM INSURANCE RISK MANAGER): TTP over this area, no e/o knee joint pathology. - Rec ice bid-tid, either naproxen 440mg bid prn or ibuprofen 400mg tid prn. - Refer to PT today Acute nasopharyngitis 09/10/20192020 Assessment & Plan (09/10/2019 8:01 PM INSURANCE RISK MANAGER): No e/o acute bacterial sinusitis, PNA. - Avoid phenylephrine and pseudoephedrine given elev BP - Flonase 2 sprays in each nostril once a day, continue mucinex and nasal rinses - Red flag sx reviewed, she will call if these occur. Primary insomnia 09/10/2019 07/04/2024 Assessment & Plan (09/10/2019 8:04 PM INSURANCE RISK MANAGER): No sx of [place], anxiety well controlled. - Previously taking xanax prn for insomnia. Discussed risks, and pt does not want to continue. She takes only occasionally so will d/c today. - Recommended sleep hygiene, regular exercise. Can trial melatonin 4-8mg qhs prn. Sensorineural hearing loss (SNHL) 11/09/2016 12/29/2020 Assessment & Plan (09/10/2019 7:49 PM INSURANCE RISK MANAGER): L sided. MRI unremarkable. She does not feel it is severe enough from hearing aids yet. - Monitor, f/u with ENT prn Encounters Date Type Department Care Team Description 03/08/2025 11:24 AM CDT - 03/08/2025 11:59 PM CDT Hospital Encounter [address] [address] Discharge Disposition: Discharge to home or self care 03/08/2025 9:30 AM CDT Office Visit [address] [place] [phone] Aaliyah Joseph NP Chest pain, unspecified type (Primary Dx); Calculus of gallbladder without cholecystitis without obstruction 03/08/2025 Results Follow-Up [address] [phone] Aaliyah Joseph NP Lipase, Amylase 03/08/2025 Orders Only [facility] the [address] [phone] Aaliyah Joseph, LAYLA Calculus of gallbladder without cholecystitis without obstruction 02/20/2025 3:00 PM CDT Office Visit [facility] [address] [facility] 2nd Floor [address] [place] [phone] Isabela Caballero PA Primary osteoarthritis of left knee (Primary Dx); Acute pain of left knee 02/08/2025 Results Follow-Up [facility] [address] [place] [address] [address] [place] [phone] Latricia Ramires MD Urinalysis reflex to microscopic and culture Urine, Urinalysis, microscopic only 02/07/2025 5:50 PM CDT Lab [facility] ([facility]) [address] [place] [phone] Dysuria 02/07/2025 Nurse Triage [address] [place] [phone] Latricia Ramires MD Dysuria (Primary Dx) 02/07/[address] [place] [phone] Latricia Ramires MD 01/21/2025 11:15 AM CDT Office Visit [facility] [address] [place] [address] [place] [phone] Rina Hoff MD Actinic keratoses (Primary Dx); History of nonmelanoma skin cancer; Seborrheic keratoses; Multiple benign nevi; Achrochordon 01/21/2025 Results Follow-Up [address] [place] [phone] Aaliyah Joseph NP XR Knee Left 4 or More Views 01/15/2025 11:00 AM CDT Office Visit [facility] [address] [place] [address] 6th [place] [address] [place] [address] Armando Mixon MD Right wrist pain 01/08/2025 2:08 PM CDT - 01/08/2025 11:59 PM CDT Hospital Encounter [facility] at the [address] [address] Acute pain of left knee Discharge Disposition: Discharge to home or self care 01/08/2025 1:30 PM CDT Office Visit [address] [place] [phone] Aaliyah Joseph NP Acute pain of left knee (Primary Dx); Right wrist pain 12/17/2024 2:00 PM CDT Procedure visit [facility] [address] [facility] Medicine 11th [place] [address] [place] [address] Shagufta Louis Au.D. Sensorineural hearing loss (SNHL) of both ears (Primary Dx); Tinnitus of both ears from Last 3 Months Immunizations Immunization Administration Dates Next Due Influenza, Quadrivalent, Hig h Dose, Preservative Free, Intrr 06/27/2024 Influenza, Unspecified 07/05/2022 Moderna SARS-CoV-2 Monovalent Vaccination (12+ Y RS) 12/26/2020,11/28/2020 Pfizer SARS-CoV-2 Monovalent Vaccination (12+ Yrs) PURPLE 12/29/2021 Pfizer Sars-Cov-2 Bivalent Vaccination (12+ YRS) 06/27/2024 Pneumococcal Conjugate Pcv20 07/04/2024 Tdap 09/06/2019 ZOSTER Recombinant 04/15/2020,10/05/2019 Medical History Medical History Date Comments Anxiety disorder takes xanax qwe ek for insomnia GERD (gastroesophageal reflux disease) 2018 Hyperthyroidism Now resolved. Squamous cell carcinoma in s itu of skin of left hand HL (hearing loss) Tinnitus Covid-19 05/12/2022 Pes anserinus bursitis of both knees 09/10/2019 Jaw pain 05/05/2021 Left lower quadrant pain 04/23/2021 Primary insomnia 09/10/2019 Diverticulitis 05/05/2021 Family History Medical History Relation Name Comments Suicidality Father Relation Name Status Comments Father Social History Tobacco Use Types Packs/Day Years [...] on file Legal Sex Female 9:08 AM INSURANCE RISK MANAGER Gender Identity Female 08/05/2020 12:20 AM INSURANCE RISK MANAGER Sexual Orientation Straight 08/30/2019 10 :52 AM INSURANCE RISK MANAGER Obstetrics History Last Filed Vital Signs Vital Sign Reading [...] Priority Associated Diagnoses Date/Ti me COLONOSCOPY Diverticulitis Health Maintenance Due Date Last Done Comments Covid-19 Vaccine ( season) 2024 06/27/2024, 06/30/2023, 08/09/2022, Additional history exists Breast Cancer Screening-Mammogram 09/26/2024 09/26/2023, 11/30/2022 Cervical Cancer Screening 10/21/2024 10/21/2023 Depression Screening 07/04/2025 07/04/2024, 07/04/2024, 01/25/2023, Additional history exists Fall Risk Assessment 07/04/2025 07/04/2024 Osteoporosis Screening-Bone Density Scan 07/04/2025 Postponed from 1959 (Patient declined, but will receive in the future) Well Visit 65+ 07/04/2025 07/04/2024, 05/10/2022, 12/31/2021, Additional history exists DTaP/Tdap/Td Vaccine (2 - Td or Tdap) 09/06/2029 09/06/2019 Colon Cancer Screening-Colonoscopy 09/27/2032 09/27/2022 Zoster Vaccine Completed 04/15/2020, 10/05/2019 Hepatitis C Screening Completed 12/29/2020 Influenza Vaccine Completed 06/27/2024, , 07/05/2022 Pneumococcal vaccine 65+ Completed 07/04/2024 Hepatitis B Screening Discontinued Procedures Procedure Name Priority Date/Time Associated Diagnosis Comments AMYLASE Routine 03/08/2025 9:51 AM CDT Calculus of gallbladder without cholecystitis without obstruction LIPASE Routine 03/08/2025 9:51 AM CDT Calculus of gallbladder without cholecystitis without obstruction URINALYSIS, MICROSCOPIC ONLY Routine 02/07/2025 3:18 PM CDT Dysuria URINALYSIS AND REFLEX TO MICROSCOPIC AND CULTURE Routine 02/07/2025 3:18 PM CDT Dysuria VA ARTHROCENTESIS ASPIR&/INJ SMALL JT/BURSA W/O US Routine [...] LAB BLOOD ORDERABLES Final Resu lt [facility] Department [place] [address] * Amylase (03/08/2025 9:51 AM CDT) Amylase 65 30 - 99 Units/L Blood 03/08/2025 9:51 AM CDT 03/08/2025 12:15 PM CDT Aaliyah Joseph NP LAB BLOOD ORDERABLES Final Resu lt Performing Organization Address [facility]/ZIP Co de Phone Number [facility] [place] [address] * (ABNORMAL) Urinalysis reflex to microscopic and culture Urine (02/07/2025 3:18 PM CDT) Pathologist [facility] Color, ur Straw Yellow Clarity, ur Clear Clear [facility] Specific gravity, ur 1.010 1.003 - 1.030 [facility] pH, urine 6.5 [facility] Comment: Interpretive Data U rine pH is affected by diet, medications, systemic acid-base disturbances, and renal tubular function. pH may affect urinary stone formation. For example, urine pH below 6.0 may help reduce the tendency for calcium phosphate stones and pH greater than 6.0 may reduce the tendency for uric acid stone formation. Source: [facility] Current Interpretive Data was last revised on 2017 Protein, ur ql Negative Negative [facility] Glucose, ur ql Negative Negative [facility] Ketones, ur Negative Negative [facility] Bilirubin, ur Negative Negative [facility] Blood, ur Negative Negative [facility] Urobilinogen, ur <2.0 <2.0 mg/dL [facility] Nitrite, ur Negative Negative [facility] Leukocyte esterase, ur Trace(A) Negative [facility] UA reflex comment Reflex to microscopic UA will be performed. [facility] Urine 02/07/2025 3:18 PM CDT 02/07/2025 4:01 PM CDT Latricia Ramires MD LAB MICROBIOLOGY - GENERAL OR DERABLES Final Result Performing Organization Address City/[facility]/ZIP Co de Phone Number [facility] [place] [address] * (ABNORMAL) Urinalysis, microscopic only (02/07/2025 3:18 PM CDT) WBC, ur 6-10(A) 0 - 5 /HPF RBC, ur 0-2 0 - 2 /HPF [facility] Epithelial cells, squamous, ur 1-5 0 - 5 /HPF [facility] Culture Reflex Comment Reflex conditions for urine culture (WBC >10) not met. [facility] Urine 02/07/2025 3:18 PM CDT 02/07/2025 4:01 PM CDT us Latricia Ramires MD LAB URINE ORDERABLES Final Re sult [facility] [place] [address] * VA ARTHROCENTESIS ASPIR&/INJ SMALL JT/BURSA W/O US (01/15/2025 11:00 AM CDT) Narrative Armando Mixon MD - 01/15/2025 11:00 AM CDT Armando Mixon MD 01/15/2025 1:03 PM Small Joint [...] No displaced fracture. Procedure Note Bashir Wise, DO - 01/08/2025 EXAMINATION: XR KNEE LEFT 4 [...] Hepatitis C antibody (12/29/2020 11:16 AM CDT) [facility] Hep C Ab <0.1 0.0 - 0.9 s/co ratio [facility] - 01 Comment: Negative: < 0.8 Indeterminate: 0.8 - 0.9 Positive: > 0.9 The CDC recommends that a positive HCV antibody result be followed up with a HCV Nucleic Acid Amplification test ([id number]). Blood specimen (specimen) 12/29/2020 11:16 AM CDT 12/29/2020 Narrative [facility] - 12/31/2020 7:09 AM CDT Performed at: [address] [place] [id number] Tech Ed Teacher: Sherwin Trevino PhD, Phone: [phone] Michelle Diaz MD LAB MICROBIOLOGY - GEN ERAL ORDERABLES Final Result [facility] 01 from Last 3 Months or Most Recently Relevant to Health Maintenance Insurance [employer] [facility] [id number] [facility] [id number] [facility] Care Teams Batch Dumper Relationship Specialty Start Date End Date Latricia Ramires MD [address] [facility] [address], [place] [address] PCP - General Sleep Medicine 06/22/23
== END 2025-03-11 15:38 | disposition home or self-care (01) ==
PROVIDERS: Visit Provider Obstetrics & Gynecology
DX: Z12.31 Encounter for screening mammogram for malignant neoplasm of breast (principal)
CPT/HCPCS: 77063; 77067